=== PATIENT | male | born 1965 | race Caucasian/White ===

== ENCOUNTER 2019-10-29 09:05 | Observation (INO) ==
[2019-10-29 09:30] VITALS: BMI 24.3
--- NOTE | 2019-10-29 09:38 | DR.GENAD ---
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 Pt reports gradual onset numbness/ tingling in the area of the right face/ rue/ rle along with some mild rue weakness. Developed this around midnight last night, went to bed. Awoke w/ persistent sx's and reported to ED. Denies visual/ speech changes, syncope, other focal numbness, aphasia/ dysarthria. No CP, SOB, n/v. No hx of head injury. Complaint/Symptoms Chief Complaint:: NUMBNESS TO RIGHT SIDE Self Treatment fo Chief Complaint: PATIENT STATES THAT HE FELL ASLEEP IN THE CHAIR LAST NIGHT AND AROUND MIDNIGHT WOKE UP. HIS RIGHT ARM AND LEG WERE NUMB AND TINGLING AND STATES IF FELT LIKE WHEN YOUR EXTS "FALL ASLEEP". PATIENT TOOK A BENADRYL AND WENT TO BED. WOKE UP THIS MORNING AND THE SYMPTOM REMAINED AND SEEMED TO BE WORSE. STATES THAT IT IS NOW IN THE RIGHT SIDE OF HIS HEAD. STATES THAT HE CAN FEEL WHEN HIS EXTS AND HEAD ARE TOUCHED BUT IT IS TINGLING AND NUMB. Source History Provided: Patient Mode of Arrival Mode of Arrival: Ambulatory Timing Onset of Chief Complaint: 10/28/19 Came on: Suddenly Severity Severity: Mild PMH PMH Past Medical History: Yes Past Medical History Comment: TESTICULAR CANCER 2007 Past Surgical History: Yes Surgical History: Appendectomy and Ortho Surgery Past Surgical History Comment: LEFT SHOULDER SURGERY Family History History of Family Medical Conditions: Yes Family Medical History: Coronary Artery Disease Social History Does patient currently use any type of tobacco product: Yes Have you used tobacco products in the last 12 months: Yes Type of Tobacco Use: Cigarettes Alcohol Use: None Do you use any recreational Drugs:: Yes (MARIJUANA) Lives With: Alone Lives Where: Home Infectious screening In the last 2 months have you had wt loss of >10#?: NO Have you had fever, night sweats or hemotysis?: No Have you traveled outside the country in the last 6 months?: No Isolation: Standard ROS Review of Systems Constitutional: No Symptoms Reported Eyes: No Symptoms Reported ENTM: No Symptoms Reported Respiratoy: No Symptoms Reported Cardiovascular: No Symptoms Reported Gastrointestinal/Abdominal: No Symptoms Reported Genitourinary: No Symptoms Reported Neurological: Numbness, Paresthesia, Tingling and Weakness; negative Headache, Pre-existing Deficit, Seizure, Dizziness and Speech Problem Musculoskeletal: No Symptoms Reported Integumentary: No Symptoms Reported Hematologic/Lymphatic: No Symptoms Reported Endocrine: No Symptoms Reported Psychiatric: No Symptoms Reported All Other Systems: Reviewed and Negative PE Vital Signs Vitals: Temperature 97.9 F Pulse Rate [Left Brachial] 49 Pulse Rate 49 Respiratory Rate 20 Blood Pressure [Left Arm] 178/84 Blood Pressure 178/84 O2 Sat by Pulse Oximetry 98 General Limitations: No Limitations General Appearance: Alert and In No Apparent Distress Head Head Exam: Normal Inspection Eyes Eye exam: Normal Appearance ENT ENT Exam: Normal Exam External Ear Exam: Normal External Inspection TM/Canal Exam: Bilateral: Normal Nose Exam: Normal Nose Exam Mouth Exam: Normal Inspection Throat Exam: Normal Inspection Neck Neck Exam: Normal Inspection Chest Chest Inspection: Normal Inspection Respiratory Respiratory Exam: Normal Lung Sounds Bilat Respiratory Exam: Bilateral: Clear to Auscultation Cardiovascular Cardiovascular Exam: Regular Rate and Normal Rhythm Abdominal Exam Abdominal Exam: Normal Inspection, Normal Bowel Sounds and Soft Extremities Extremities Exam: Normal Inspection Back Back Exam: Normal Inspection Neurologic Neurological Exam: Alert, Oriented X3, CN II-XII Intact, Reflexes Normal and Other (5/5 strength all major muscle groups, no aphasia or dysarthria, a/o x 3. No pronator drift. No cerebellar defecits. ); negative Motor Sensory Deficit Psychiatric Psychiatric Exam: Normal Affect and Normal Mood Skin Skin Exam: Warm, Dry, Intact and Normal Color MDM Differential Diagnosis Differential Diagnosis: cva, ich, cervical radiculopathy, head injury, et al COURSE Treatment Treatment: 53 yo m w/ pmh htn and tobacco abuse presents with right sided body numbness and trace RUE weakness. 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 NIH SS on arrival 1. CT head negative. EKG w/ NS t wave changes. Neuro exam unchanged on serial re-eval. Loaded with asa/ statin. D/w Dr Bhatti hospitalist whom agrees to admit to observation for TIA. ROR Labs Reviewed Result Diagrams: 10/29/19 09:57 10/29/19 09:57 Laboratory: WBC 8.8 X10^3/uL (3.6-10.0) 10/29/19 09:57 RBC 4.13 X10^6/uL (4.7-6.0) L 10/29/19 09:57 Hgb 13.5 g/dL (13.5-18.0) 10/29/19 09:57 Hct 39.5 % (42.0-54.0) L 10/29/19 09:57 MCV 95.6 fL (80.0-100.0) 10/29/19 09:57 MCH 32.6 pg (27.0-34.0) 10/29/19 09:57 MCHC 34.1 g/dL (33.0-35.0) 10/29/19 09:57 RDW 12.9 % (11.6-16.5) 10/29/19 09:57 Plt Count 260 X10^3/uL (150.0-450.0) 10/29/19 09:57 MPV 8.3 fL (7.4-11.0) 10/29/19 09:57 Neut % (Auto) 67.3 % (42.0-75.0) 10/29/19 09:57 Lymph % (Auto) 20.3 % (21.0-51.0) L 10/29/19 09:57 [place] % (Auto) 7.3 % (0.0-13.0) 10/29/19 09:57 Eos % (Auto) 4.4 % (0.9-2.9) H 10/29/19 09:57 Baso % (Auto) 0.7 % (0.2-1.0) 10/29/19 09:57 Neut # (Auto) 5.9 x10^3/uL (2.2-4.8) H 10/29/19 09:57 Lymph # (Auto) 1.8 X10^3/uL (1.3-2.9) 10/29/19 09:57 [place] # (Auto) 0.6 x10^3/uL (0.3-0.8) 10/29/19 09:57 Eos # (Auto) 0.4 x10^3/uL (0.0-0.2) H 10/29/19 09:57 Baso # (Auto) 0.1 X10^3/uL (0.0-0.1) 10/29/19 09:57 Absolute Nucleated RBC 0.1 /100WBC 10/29/19 09:57 Sodium 141 mmol/L (136-145) 10/29/19 09:57 Corrected Sodium TNP 10/29/19 09:57 Potassium 4.0 mmol/L (3.5-5.1) 10/29/19 09:57 Chloride 106 mmol/L (98-107) 10/29/19 09:57 Carbon Dioxide 30.0 mmol/L (21-32) 10/29/19 09:57 BUN 14 mg/dL (7-18) 10/29/19 09:57 Creatinine 1.28 mg/dL (0.70-1.30) 10/29/19 09:57 Est GFR (MDRD) Af Amer > 60 (>60) 10/29/19 09:57 Est GFR (MDRD) Non-Af > 60 (>60) 10/29/19 09:57 Glucose 90 mg/dL (65-99) 10/29/19 09:57 Calcium 8.5 mg/dL (8.5-10.1) 10/29/19 09:57 Troponin I < 0.02 ng/mL (0-1.5) 10/29/19 09:57 EKG Rate: 44 Rhythm: SB Hypertrophy: LVH ST: Nonsp Opioid Opioid Risk Tool Total: 0 Total Score Risk Category: Low Risk Copyright: Rahul MARSHALL predicting aberrant behaviors Diagnosis Discharge Problem: Brain TIA, Benign essential HTN, Tobacco abuse
[2019-10-29 10:04] LABS: BASOPHILS # (AUTO) 0.1 X10^3/uL (0.0-0.1); BASOPHILS % (AUTO) 0.7 % (0.2-1.0); EOSINOPHILS # (AUTO) 0.4 x10^3/uL (0.0-0.2); EOSINOPHILS % (AUTO) 4.4 % (0.9-2.9); HEMATOCRIT 39.5 % (42.0-54.0); HEMOGLOBIN 13.5 g/dL (13.5-18.0); LYMPHOCYTES # (AUTO) 1.8 X10^3/uL (1.3-2.9); LYMPHOCYTES % (AUTO) 20.3 % (21.0-51.0); MEAN CORPUSCULAR HEMOGLOBIN 32.6 pg (27.0-34.0); MEAN CORPUSCULAR HGB CONC 34.1 g/dL (33.0-35.0); MEAN CORPUSCULAR VOLUME 95.6 fL (80.0-100.0); MEAN PLATELET VOLUME 8.3 fL (7.4-11.0); MONOCYTES # (AUTO) 0.6 x10^3/uL (0.3-0.8); MONOCYTES % (AUTO) 7.3 % (0.0-13.0); NEUTROPHILS # (AUTO) 5.9 x10^3/uL (2.2-4.8); NEUTROPHILS % (AUTO) 67.3 % (42.0-75.0); PLATELET COUNT 260 X10^3/uL (150.0-450.0); RED BLOOD COUNT 4.13 X10^6/uL (4.7-6.0); RED CELL DISTRIBUTION WIDTH 12.9 % (11.6-16.5); WHITE BLOOD COUNT 8.8 X10^3/uL (3.6-10.0)
[2019-10-29 10:17] LABS: BLOOD UREA NITROGEN 14 mg/dL (7-18); CALCIUM 8.5 mg/dL (8.5-10.1); CHLORIDE 106 mmol/L (98-107); CREATININE 1.28 mg/dL (0.70-1.30); SODIUM 141 mmol/L (136-145); TROPONIN I < 0.02 ng/mL (0-1.5); eGFR NON BLACK RACES > 60 (>60)
--- NOTE | 2019-10-29 10:26 | CT ---
HISTORYr/o stroke, right sided weaknessSTUDYBRAIN W/O CONCOMPARISONNoneTECHNIQUEMultiple axial CT images of the head without contrast. Dose reduction techniques including Automated Exposure Control (AEC) and adjustment of mA and kV were utilized.FINDINGSNo visible intracranial hemorrhage or overt acute infarct. No ventriculomegaly or midline shift. Basal cisterns appear patent. Globes intact. Included paranasal sinuses and mastoid air cells appear aerated. Skull base and calvarium appear intact.IMPRESSIONNo acute intracranial finding.Electronically signed by: Nabeel Orozco (Oct 29, 2019 10:25:06)
[2019-10-29] MEDS ORDERED: ASPIRIN PO ONE (10:28)
[2019-10-29] MEDS ORDERED: ASPIRIN ONE (10:32)
--- NOTE | 2019-10-29 10:50 | RAD ---
HISTORYWeaknessSTUDYCHEST, 1 VIEWCOMPARISONNoneFINDINGSThe trachea is midline. The cardiac silhouette is unremarkable . The lungs are clear without focal infiltrate or effusion. The bony thorax is unremarkable.IMPRESSIONNo acute cardiopulmonary disease.Electronically signed by: Nabeel Orozco (Oct 29, 2019 10:49:23)
[2019-10-29] MEDS ORDERED: NS 1000 ML 1,000 ML ONE (11:23)
[2019-10-29] MEDS ORDERED: NORCURON INJ 10 MG VIAL 50 MG in NS 50 ML IV 50 ML IV PRN (11:28)
[2019-10-29] MEDS: NS 1000 ML 1,000 ML IV SCH ×3 (11:37→21:30)
--- NOTE | 2019-10-29 13:03 | DR.H&P ---
H&P History & Physical for Day of: H&P Date: 10/29/19 Chief Complaint Chief Complaint: Right sided weakness Allergies Allergies Allergy/AdvReac Type Severity Reaction Status Date / Time erythromycin base Allergy Verified 10/29/19 10:29 History of Present Illness History of Present Illness: Pt is a 53 yo m with no pmhx presenting after having numbness and tingling right side of face, right arm, and RLE that started 9 hours before arriving to ED. He reports that he woke up from sleep with symptoms. Labs/imaging: Wbc 8.8, Hgb 13.5, Plt 260, Na 141, K 4, Cr 1.28, Gluc 90. Ct brain and CXR no acute findings. EKG Sinus bradycardia. Pt was given ASA 325mg in the ED. He is still having symptoms. Start on IVF, Lipitor. Neuro checks. Pt had elevated blood pressure and is currently not on any medication. Will add antihypertensive. Continue to monitor and follow up labs/imaging in the morning. Past Surgical History Surgical History: Appendectomy and Ortho Surgery Family History Family Medical History: Coronary Artery Disease Social History Does patient currently use any type of tobacco product: Yes Have you used tobacco products in the last 12 months: Yes Type of Tobacco Use: Cigarettes Alcohol Use: None Medications Home Medications: erythromycin base Allergy (Verified 10/29/19 10:29) CONTINUE taking the following medications NK 10/29/19 [History] Labs Result Diagrams: 10/30/19 06:05 10/30/19 06:05 Labs: Laboratory WBC 8.8 X10^3/uL (3.6-10.0) 10/29/19 09:57 RBC 4.13 X10^6/uL (4.7-6.0) L 10/29/19 09:57 Hgb 13.5 g/dL (13.5-18.0) 10/29/19 09:57 Hct 39.5 % (42.0-54.0) L 10/29/19 09:57 MCV 95.6 fL (80.0-100.0) 10/29/19 09:57 MCH 32.6 pg (27.0-34.0) 10/29/19 09:57 MCHC 34.1 g/dL (33.0-35.0) 10/29/19 09:57 RDW 12.9 % (11.6-16.5) 10/29/19 09:57 Plt Count 260 X10^3/uL (150.0-450.0) 10/29/19 09:57 MPV 8.3 fL (7.4-11.0) 10/29/19 09:57 Neut % (Auto) 67.3 % (42.0-75.0) 10/29/19 09:57 Lymph % (Auto) 20.3 % (21.0-51.0) L 10/29/19 09:57 [place] % (Auto) 7.3 % (0.0-13.0) 10/29/19 09:57 Eos % (Auto) 4.4 % (0.9-2.9) H 10/29/19 09:57 Baso % (Auto) 0.7 % (0.2-1.0) 10/29/19 09:57 Neut # (Auto) 5.9 x10^3/uL (2.2-4.8) H 10/29/19 09:57 Lymph # (Auto) 1.8 X10^3/uL (1.3-2.9) 10/29/19 09:57 [place] # (Auto) 0.6 x10^3/uL (0.3-0.8) 10/29/19 09:57 Eos # (Auto) 0.4 x10^3/uL (0.0-0.2) H 10/29/19 09:57 Baso # (Auto) 0.1 X10^3/uL (0.0-0.1) 10/29/19 09:57 Absolute Nucleated RBC 0.1 /100WBC 10/29/19 09:57 Sodium 141 mmol/L (136-145) 10/29/19 09:57 Corrected Sodium TNP 10/29/19 09:57 Potassium 4.0 mmol/L (3.5-5.1) 10/29/19 09:57 Chloride 106 mmol/L (98-107) 10/29/19 09:57 Carbon Dioxide 30.0 mmol/L (21-32) 10/29/19 09:57 BUN 14 mg/dL (7-18) 10/29/19 09:57 Creatinine 1.28 mg/dL (0.70-1.30) 10/29/19 09:57 Est GFR (MDRD) Af Amer > 60 (>60) 10/29/19 09:57 Est GFR (MDRD) Non-Af > 60 (>60) 10/29/19 09:57 Glucose 90 mg/dL (65-99) 10/29/19 09:57 Calcium 8.5 mg/dL (8.5-10.1) 10/29/19 09:57 Troponin I < 0.02 ng/mL (0-1.5) 10/29/19 09:57 Review of Systems Constitutional: Weakness Eyes: No Symptoms Reported ENT: No Symptoms Reported Respiratory: No Symptoms Reported Cardiovascular: No Symptoms Reported Gastrointestinal: No Symptoms Reported Genitourinary: No Symptoms Reported Musculoskeletal: No Symptoms Reported Skin: No Symptoms Reported Neurological: Weakness and Numbness Physical Exam Vital Signs: Temperature 97.9 F Pulse Rate [Left Brachial] 49 Pulse Rate 49 Respiratory Rate 20 Blood Pressure [Left Arm] 178/84 Blood Pressure 178/84 O2 Sat by Pulse Oximetry 98 Oriented: Normal Eyes: Normal Ear: Normal Nose: Normal Throat: Normal Respiratory: Clear Throughout Cardiovascular: Normal : Normal Auscultation: Bowel Sounds: Normal Palpation: Normal Tenderness: Normal Skin: Normal Musculoskeletal: Normal Psychiatric: Normal Mood Description: Calm and Appropriate Affect: Normal Speech Pattern: Clear and Appropriate Assessment/Plan (1) Brain TIA: Status: Acute Plan: CT brain negative continue neuro checks (2) Benign essential HTN: Status: Acute Plan: start hctz (3) Tobacco abuse: Status: Acute Plan: nicotine patch Review H&P Reviewed: Yes Patient was examined?: Yes
[2019-10-29] MEDS: LIPITOR TAB 40 MG PO SCH (15:41)
[2019-10-29] MEDS: NICOTINE PATCH TD SCH (15:42)
[2019-10-29] MEDS ORDERED: HYDROCHLOROTHIAZIDE 12.5 MG CAP ONE (17:52)
[2019-10-29] MEDS: HYDROCHLOROTHIAZIDE 12.5 MG CAP PO SCH (17:55)
[2019-10-29] MEDS ORDERED: APRESOLINE INJ 20 MG VIAL IVP ONE (21:16)
[2019-10-29] MEDS ORDERED: APRESOLINE INJ 20 MG VIAL ONE (21:20)
[2019-10-30] MEDS: NS 1000 ML 1,000 ML IV SCH (05:11)
[2019-10-30 06:40] LABS: BASOPHILS # (AUTO) 0.1 X10^3/uL (0.0-0.1); EOSINOPHILS # (AUTO) 0.5 x10^3/uL (0.0-0.2); EOSINOPHILS % (AUTO) 5.8 % (0.9-2.9); HEMATOCRIT 39.6 % (42.0-54.0); HEMOGLOBIN 13.8 g/dL (13.5-18.0); LYMPHOCYTES # (AUTO) 2.4 X10^3/uL (1.3-2.9); LYMPHOCYTES % (AUTO) 27.3 % (21.0-51.0); MEAN CORPUSCULAR HEMOGLOBIN 32.9 pg (27.0-34.0); MEAN CORPUSCULAR HGB CONC 34.8 g/dL (33.0-35.0); MEAN CORPUSCULAR VOLUME 94.4 fL (80.0-100.0); MEAN PLATELET VOLUME 8.2 fL (7.4-11.0); MONOCYTES # (AUTO) 0.7 x10^3/uL (0.3-0.8); MONOCYTES % (AUTO) 7.9 % (0.0-13.0); NEUTROPHILS # (AUTO) 5.1 x10^3/uL (2.2-4.8); PLATELET COUNT 255 X10^3/uL (150.0-450.0); RED BLOOD COUNT 4.19 X10^6/uL (4.7-6.0); RED CELL DISTRIBUTION WIDTH 12.8 % (11.6-16.5); WHITE BLOOD COUNT 8.8 X10^3/uL (3.6-10.0)
[2019-10-30 06:47] LABS: BLOOD UREA NITROGEN 11 mg/dL (7-18); CALCIUM 8.4 mg/dL (8.5-10.1); CARBON DIOXIDE 26.2 mmol/L (21-32); CHLORIDE 108 mmol/L (98-107); CREATININE 1.08 mg/dL (0.70-1.30); SODIUM 141 mmol/L (136-145); eGFR NON BLACK RACES > 60 (>60)
[2019-10-30] MEDS: HYDROCHLOROTHIAZIDE 12.5 MG CAP PO SCH (08:28)
[2019-10-30] MEDS: NICOTINE PATCH TD SCH (08:28)
[2019-10-30] MEDS: LIPITOR TAB 40 MG PO SCH (08:29)
[2019-10-30] MEDS ORDERED: ASPIRIN PO SCH (09:00)
[2019-10-30] MEDS ORDERED: ZESTRIL TAB 20 MG PO ONE (09:00)
[2019-10-30] MEDS ORDERED: HYDROCHLOROTHIAZIDE 12.5 MG CAP PO ONE (09:00)
[2019-10-30] MEDS ORDERED: ZESTORETIC 20/25 MG PO SCH (09:00)
[2019-10-30] MEDS ORDERED: ZESTRIL TAB 20 MG ONE (09:47)
--- NOTE | 2019-10-30 10:00 | PCM.PROG ---
Progress Note Progress Note for Day of Date of Exam: 10/30/19 Subjective Subjective: Pt is a 53 yo m admitted for TIA and stroke rule out. This morning pt states he is still feeling numbness and tingling on right side of body, including face, arm, hand, and leg. His blood pressure remained elevated yesterday and this morning even after addition of hydrochlorothiazide. Labs/i maging: Wbc 8.8, Hgb 13.8, Plt 255, Na 141, K 4.1, Cr 1.08, Gluc 101. Will stop IVF. Add on lisinopril and increase hydrochlorothiazide dose. Continue Lipitor. Neuro checks. Will order MRI brain to rule out stroke due to continuing symptoms. Continue to monitor and follow up labs/imaging in the morning. Past Medical Family Social History Past Med/Fam/Surg Hx: No changes since H&P Allergies: Allergies erythromycin base Allergy (Verified 10/29/19 10:29) Review of Systems ROS: No change since H&P Vital Signs and I&O's Vital Signs: Temperature 98 F Pulse Rate [Left Brachial] 56 Pulse Rate 49 Respiratory Rate 20 Blood Pressure [Left Arm] 175/80 Blood Pressure 178/84 O2 Sat by Pulse Oximetry 98 Intake and Output: Intake & Output 10/27/19 10/28/19 10/29/19 10/30/19 23:59 23:59 23:59 23:59 Intake Total 2140 / 2140 1115 / 1115 Output Total 900 / 900 850 / 850 Balance 1240 / 1240 265 / 265 Physical Exam Oriented: Normal Eyes: Normal Ear: Normal Nose: Normal Throat: Normal Respiratory: Normal Cardiovascular: Normal : Normal Auscultation: Bowel Sounds: Normal Tenderness: Normal Skin: Normal Musculoskeletal: Normal Psychiatric: Normal Mood Description: Calm Affect: Normal Speech Pattern: Clear and Appropriate Laboratory and Diagnostics Result Diagrams: 10/30/19 06:05 10/30/19 06:05 Labs: Laboratory WBC 8.8 X10^3/uL (3.6-10.0) 10/30/19 06:05 RBC 4.19 X10^6/uL (4.7-6.0) L 10/30/19 06:05 Hgb 13.8 g/dL (13.5-18.0) 10/30/19 06:05 Hct 39.6 % (42.0-54.0) L 10/30/19 06:05 MCV 94.4 fL (80.0-100.0) 10/30/19 06:05 MCH 32.9 pg (27.0-34.0) 10/30/19 06:05 MCHC 34.8 g/dL (33.0-35.0) 10/30/19 06:05 RDW 12.8 % (11.6-16.5) 10/30/19 06:05 Plt Count 255 X10^3/uL (150.0-450.0) 10/30/19 06:05 MPV 8.2 fL (7.4-11.0) 10/30/19 06:05 Neut % (Auto) 58.0 % (42.0-75.0) 10/30/19 06:05 Lymph % (Auto) 27.3 % (21.0-51.0) 10/30/19 06:05 [place] % (Auto) 7.9 % (0.0-13.0) 10/30/19 06:05 Eos % (Auto) 5.8 % (0.9-2.9) H 10/30/19 06:05 Baso % (Auto) 1.0 % (0.2-1.0) 10/30/19 06:05 Neut # (Auto) 5.1 x10^3/uL (2.2-4.8) H 10/30/19 06:05 Lymph # (Auto) 2.4 X10^3/uL (1.3-2.9) 10/30/19 06:05 [place] # (Auto) 0.7 x10^3/uL (0.3-0.8) 10/30/19 06:05 Eos # (Auto) 0.5 x10^3/uL (0.0-0.2) H 10/30/19 06:05 Baso # (Auto) 0.1 X10^3/uL (0.0-0.1) 10/30/19 06:05 Absolute Nucleated RBC 0.1 /100WBC 10/30/19 06:05 Sodium 141 mmol/L (136-145) 10/30/19 06:05 Corrected Sodium TNP 10/30/19 06:05 Potassium 4.1 mmol/L (3.5-5.1) 10/30/19 06:05 Chloride 108 mmol/L (98-107) H 10/30/19 06:05 Carbon Dioxide 26.2 mmol/L (21-32) 10/30/19 06:05 BUN 11 mg/dL (7-18) 10/30/19 06:05 Creatinine 1.08 mg/dL (0.70-1.30) 10/30/19 06:05 Est GFR (MDRD) Af Amer > 60 (>60) 10/30/19 06:05 Est GFR (MDRD) Non-Af > 60 (>60) 10/30/19 06:05 Glucose 101 mg/dL (65-99) H 10/30/19 06:05 Calcium 8.4 mg/dL (8.5-10.1) L 10/30/19 06:05 Troponin I < 0.02 ng/mL (0-1.5) 10/29/19 09:57 Plan (1) Brain TIA: Status: Acute Plan: CT brain negative continue neuro checks Order MRI brain (2) Benign essential HTN: Status: Acute Plan: Will start on Lisinopril/HCTZ 20/25mg (3) Tobacco abuse: Status: Acute Plan: nicotine patch
[2019-10-30] MEDS ORDERED: CATAPRES TAB 0.1 MG ONE (11:57)
[2019-10-30] MEDS: CATAPRES TAB 0.1 MG PO PRN ×2 (12:00→18:03)
[2019-10-31] MEDS ORDERED: ASPIRIN EC 81 MG PO ONE (08:27)
[2019-10-31] MEDS: ASPIRIN PO SCH (08:31)
[2019-10-31] MEDS: CATAPRES TAB 0.1 MG PO SCH ×2 (08:32→21:47)
[2019-10-31] MEDS: LIPITOR TAB 40 MG PO SCH (08:32)
[2019-10-31] MEDS: NORVASC TAB 10 MG PO SCH (08:33)
[2019-10-31] MEDS: NICOTINE PATCH TD SCH (08:33)
[2019-10-31] MEDS: ZESTORETIC 20/25 MG PO SCH (08:33)
[2019-10-31] MEDS ORDERED: APRESOLINE TAB 25 MG ONE (12:32)
[2019-10-31] MEDS: APRESOLINE TAB 25 MG PO SCH ×4 (12:34→21:48)
--- NOTE | 2019-10-31 13:17 | PCM.PROG ---
Progress Note Progress Note for Day of Date of Exam: 10/31/19 Subjective Subjective: Pt is a 53 yo m admitted for TIA and stroke rule out. This morning pt reports that numbness and tingling on right side of body has improved but still present in some areas. Labs/imaging: Wbc 8.8, Hgb 13.8, Plt 255, Na 141, K 4.1, Cr 1.08, Gluc 101. His blood pressure has remained elevated and difficult to control. Will add hydralazine and norvasc. Continue Clonidine, lisinopril/hydrochlorothiazide, Lipitor. Neuro checks. MRI brain and Echo ordered. Continue to monitor and follow up labs/imaging in the morning. Past Medical Family Social History Past Med/Fam/Surg Hx: No changes since H&P Allergies: Allergies erythromycin base Allergy (Verified 10/29/19 10:29) Review of Systems ROS: No change since H&P Vital Signs and I&O's Vital Signs: Temperature 97.8 F Pulse Rate [Right Brachial] 64 Pulse Rate [Left Brachial] 50 Pulse Rate 49 Respiratory Rate 20 Blood Pressure [Right Arm] 223/90 Blood Pressure [Left Arm] 227/109 Blood Pressure 178/84 O2 Sat by Pulse Oximetry 98 Intake and Output: Intake & Output 10/28/19 10/29/19 10/30/19 10/31/19 23:59 23:59 23:59 23:59 Intake Total 2140 / 2140 3899 / 3899 240 / 240 Output Total 900 / 900 850 / 850 Balance 1240 / 1240 3049 / 3049 240 / 240 Physical Exam Oriented: Normal Eyes: Normal Ear: Normal Nose: Normal Throat: Normal Respiratory: Normal Cardiovascular: Normal : Normal Auscultation: Bowel Sounds: Normal Tenderness: Normal Skin: Normal Musculoskeletal: Normal Psychiatric: Normal Mood Description: Calm Affect: Normal Speech Pattern: Clear and Appropriate Laboratory and Diagnostics Result Diagrams: 10/30/19 06:05 10/30/19 06:05 Labs: Laboratory WBC 8.8 X10^3/uL (3.6-10.0) 10/30/19 06:05 RBC 4.19 X10^6/uL (4.7-6.0) L 10/30/19 06:05 Hgb 13.8 g/dL (13.5-18.0) 10/30/19 06:05 Hct 39.6 % (42.0-54.0) L 10/30/19 06:05 MCV 94.4 fL (80.0-100.0) 10/30/19 06:05 MCH 32.9 pg (27.0-34.0) 10/30/19 06:05 MCHC 34.8 g/dL (33.0-35.0) 10/30/19 06:05 RDW 12.8 % (11.6-16.5) 10/30/19 06:05 Plt Count 255 X10^3/uL (150.0-450.0) 10/30/19 06:05 MPV 8.2 fL (7.4-11.0) 10/30/19 06:05 Neut % (Auto) 58.0 % (42.0-75.0) 10/30/19 06:05 Lymph % (Auto) 27.3 % (21.0-51.0) 10/30/19 06:05 [place] % (Auto) 7.9 % (0.0-13.0) 10/30/19 06:05 Eos % (Auto) 5.8 % (0.9-2.9) H 10/30/19 06:05 Baso % (Auto) 1.0 % (0.2-1.0) 10/30/19 06:05 Neut # (Auto) 5.1 x10^3/uL (2.2-4.8) H 10/30/19 06:05 Lymph # (Auto) 2.4 X10^3/uL (1.3-2.9) 10/30/19 06:05 [place] # (Auto) 0.7 x10^3/uL (0.3-0.8) 10/30/19 06:05 Eos # (Auto) 0.5 x10^3/uL (0.0-0.2) H 10/30/19 06:05 Baso # (Auto) 0.1 X10^3/uL (0.0-0.1) 10/30/19 06:05 Absolute Nucleated RBC 0.1 /100WBC 10/30/19 06:05 Sodium 141 mmol/L (136-145) 10/30/19 06:05 Corrected Sodium TNP 10/30/19 06:05 Potassium 4.1 mmol/L (3.5-5.1) 10/30/19 06:05 Chloride 108 mmol/L (98-107) H 10/30/19 06:05 Carbon Dioxide 26.2 mmol/L (21-32) 10/30/19 06:05 BUN 11 mg/dL (7-18) 10/30/19 06:05 Creatinine 1.08 mg/dL (0.70-1.30) 10/30/19 06:05 Est GFR (MDRD) Af Amer > 60 (>60) 10/30/19 06:05 Est GFR (MDRD) Non-Af > 60 (>60) 10/30/19 06:05 Glucose 101 mg/dL (65-99) H 10/30/19 06:05 Calcium 8.4 mg/dL (8.5-10.1) L 10/30/19 06:05 Troponin I < 0.02 ng/mL (0-1.5) 10/29/19 09:57 Plan (1) Brain TIA: Status: Acute Plan: CT brain negative continue neuro checks Order MRI brain and echo. (2) Benign essential HTN: Status: Acute Plan: Will start on Lisinopril/HCTZ 20/25mg (3) Tobacco abuse: Status: Acute Plan: nicotine patch
--- NOTE | 2019-10-31 16:31 | MRI ---
HISTORYWEAKNESS, NUMBNESSSTUDYBRAIN W/O CONCOMPARISONPrevious head CT from 10/29/2019TECHNIQUEMultiplanar multi-sequence MRI of the brain was obtained without utilizing intravenous contrastFINDINGSPosterior fossa and supratentorial region are unremarkable with no intracranial hemorrhage or extracerebral fluid collections. Ventricles are symmetric in size and position with no mass effect seen. Normal cullen-white matter differentiation is maintained. There is no evidence of acute or chronic ischemia. Normal signal is seen in the calvarial structures. Mucosal thickening is noted at the floor of the left maxillary sinus. Mild degree of mucosal thickening is also seen in the right frontal sinus. Visualized aspect of the other paranasal sinuses and mastoid air cells are clear.IMPRESSIONNo acute intracranial abnormality is seen on this examElectronically signed by: SEA ALEMAN (Oct 31, 2019 16:30:01)
[2019-11-01 05:15] LABS: BASOPHILS # (AUTO) 0.2 X10^3/uL (0.0-0.1); BASOPHILS % (AUTO) 1.8 % (0.2-1.0); EOSINOPHILS # (AUTO) 0.5 x10^3/uL (0.0-0.2); EOSINOPHILS % (AUTO) 4.6 % (0.9-2.9); HEMATOCRIT 43.1 % (42.0-54.0); HEMOGLOBIN 14.8 g/dL (13.5-18.0); LYMPHOCYTES # (AUTO) 2.5 X10^3/uL (1.3-2.9); LYMPHOCYTES % (AUTO) 25.4 % (21.0-51.0); MEAN CORPUSCULAR HEMOGLOBIN 32.6 pg (27.0-34.0); MEAN CORPUSCULAR HGB CONC 34.4 g/dL (33.0-35.0); MEAN CORPUSCULAR VOLUME 94.6 fL (80.0-100.0); MEAN PLATELET VOLUME 8.6 fL (7.4-11.0); MONOCYTES # (AUTO) 0.8 x10^3/uL (0.3-0.8); NEUTROPHILS % (AUTO) 60.2 % (42.0-75.0); PLATELET COUNT 280 X10^3/uL (150.0-450.0); RED BLOOD COUNT 4.55 X10^6/uL (4.7-6.0); RED CELL DISTRIBUTION WIDTH 12.7 % (11.6-16.5)
[2019-11-01 05:34] LABS: ALANINE AMINOTRANSFERASE 19 Units/L (12-78); ALBUMIN 3.2 g/dL (3.4-5.0); ALKALINE PHOSPHATASE 82 Units/L (46-116); ASPARTATE AMINO TRANSFERASE 16 Units/L (15-37); BLOOD UREA NITROGEN 19 mg/dL (7-18); CALCIUM 8.6 mg/dL (8.5-10.1); CARBON DIOXIDE 28.9 mmol/L (21-32); CHLORIDE 101 mmol/L (98-107); COR CA(FOR HYPOALB) 9.2 mg/dL (8.5-10.1); CREATININE 1.62 mg/dL (0.70-1.30); SODIUM 139 mmol/L (136-145); TOTAL PROTEIN 7.2 g/dL (6.4-8.2); eGFR NON BLACK RACES 48 (>60)
[2019-11-01] MEDS: APRESOLINE TAB 25 MG PO SCH ×3 (06:00→21:24)
[2019-11-01] MEDS ORDERED: MAGNESIUM SULFATE 1 GRAM/100 mL PREMIX 1 GM/100 ML BAG IV PRN (07:59)
[2019-11-01] MEDS ORDERED: POTASSIUM CHL 60 MEQ/NS 0.45% 500 ML IV PRN (07:59)
[2019-11-01] MEDS ORDERED: K-RIDER 10 MEQ/NS 100 ML 10 MEQ/100 ML BAG IV PRN (07:59)
[2019-11-01] MEDS ORDERED: KLOR-CON PO PRN (07:59)
[2019-11-01] MEDS ORDERED: MICRO K EXTEN CAP 10 MEQ PO PRN (07:59)
[2019-11-01] MEDS ORDERED: POTASSIUM CHLORIDE LIQ 20 MEQ UDC PO PRN (07:59)
[2019-11-01] MEDS ORDERED: POTASSIUM CHL 40 MEQ/NS 0.45% 500 ML IV PRN (07:59)
[2019-11-01] MEDS ORDERED: K-DUR TAB 20 MEQ PO PRN (07:59)
[2019-11-01] MEDS ORDERED: ASPIRIN EC 81 MG PO ONE (08:16)
[2019-11-01] MEDS: CATAPRES TAB 0.1 MG PO SCH (08:21)
[2019-11-01] MEDS: LIPITOR TAB 40 MG PO SCH (08:22)
[2019-11-01] MEDS: ASPIRIN PO SCH (08:22)
[2019-11-01] MEDS: ZESTORETIC 20/25 MG PO SCH (08:23)
[2019-11-01] MEDS: NICOTINE PATCH TD SCH (08:23)
[2019-11-01] MEDS: NORVASC TAB 10 MG PO SCH (08:23)
[2019-11-01] MEDS: CATAPRES TAB 0.2 MG PO SCH ×2 (14:31→21:24)
[2019-11-01] MEDS: NS 1000 ML 1,000 ML IV SCH ×3 (14:31→23:00)
[2019-11-02] MEDS: NS 1000 ML 1,000 ML IV SCH ×2 (04:25→09:01)
[2019-11-02 06:09] LABS: BASOPHILS # (AUTO) 0.1 X10^3/uL (0.0-0.1); EOSINOPHILS # (AUTO) 0.5 x10^3/uL (0.0-0.2); EOSINOPHILS % (AUTO) 6.2 % (0.9-2.9); HEMATOCRIT 39.5 % (42.0-54.0); HEMOGLOBIN 13.7 g/dL (13.5-18.0); LYMPHOCYTES # (AUTO) 2.4 X10^3/uL (1.3-2.9); LYMPHOCYTES % (AUTO) 28.7 % (21.0-51.0); MEAN CORPUSCULAR HEMOGLOBIN 32.5 pg (27.0-34.0); MEAN CORPUSCULAR HGB CONC 34.6 g/dL (33.0-35.0); MEAN CORPUSCULAR VOLUME 94.1 fL (80.0-100.0); MEAN PLATELET VOLUME 8.6 fL (7.4-11.0); MONOCYTES # (AUTO) 0.9 x10^3/uL (0.3-0.8); MONOCYTES % (AUTO) 10.6 % (0.0-13.0); NEUTROPHILS # (AUTO) 4.5 x10^3/uL (2.2-4.8); NEUTROPHILS % (AUTO) 53.5 % (42.0-75.0); PLATELET COUNT 245 X10^3/uL (150.0-450.0); RED CELL DISTRIBUTION WIDTH 12.8 % (11.6-16.5); WHITE BLOOD COUNT 8.4 X10^3/uL (3.6-10.0)
[2019-11-02 06:19] LABS: ALANINE AMINOTRANSFERASE 20 Units/L (12-78); ALBUMIN 2.8 g/dL (3.4-5.0); ALKALINE PHOSPHATASE 70 Units/L (46-116); ASPARTATE AMINO TRANSFERASE 15 Units/L (15-37); BLOOD UREA NITROGEN 20 mg/dL (7-18); CALCIUM 8.3 mg/dL (8.5-10.1); CARBON DIOXIDE 26.2 mmol/L (21-32); CHLORIDE 106 mmol/L (98-107); COR CA(FOR HYPOALB) 9.3 mg/dL (8.5-10.1); CREATININE 1.46 mg/dL (0.70-1.30); SODIUM 139 mmol/L (136-145); TOTAL PROTEIN 6.2 g/dL (6.4-8.2); eGFR NON BLACK RACES 54 (>60)
[2019-11-02] MEDS: ASPIRIN PO SCH (08:59)
[2019-11-02] MEDS: NORVASC TAB 10 MG PO SCH (09:00)
[2019-11-02] MEDS: NICOTINE PATCH TD SCH (09:00)
[2019-11-02] MEDS: LIPITOR TAB 40 MG PO SCH (09:00)
[2019-11-02] MEDS: ZESTORETIC 20/25 MG PO SCH (09:00)
[2019-11-02] MEDS: APRESOLINE TAB 25 MG PO SCH (09:04)
[2019-11-02] MEDS: CATAPRES TAB 0.2 MG PO SCH (09:05)
--- NOTE | 2019-11-02 10:34 | CT ---
HISTORYHTNSTUDYCT of the abdomen and pelvis with and without contrast.COMPARISONNoneTECHNIQUEMultiple axial images of the abdomen and pelvis were obtained from the lung bases to the pubic symphysis after the administration of IV contrast. Delayed sequences were performed. Dose reduction techniques including Automated Exposure Control (AEC) and adjustment of mA and kV were utilized. 3D MIPS images were generated from the original data set.FINDINGSThe visualized portions of the lung bases are unremarkable. There is [id number] multilevel discogenic degenerative disease of the visualized thoracic and lumbar spine. There are bilateral L5 pars defects with grade 1 anterior listhesis of L5 on S1. Subcutaneous tissues are unremarkable. The abdominal aorta demonstrates good opacification with scattered atherosclerotic disease but no aneurysmal dilatation. There are single bilateral renal arteries without atherosclerotic disease. The celiac, SMA and SUSAN are widely patent without atherosclerotic disease at their origins. Both kidneys demonstrate normal renal enhancement. Delayed imaging shows urinary chronic trapped within the right kidney. The left kidney shows no renal pelvic or ureter contrast. There is no hydronephrosis or perinephric stranding. No renal stones are present.For arterial study the liver, spleen, adrenal glands, pancreas and stomach are unremarkable. No retroperitoneal adenopathy is seen. Gallbladder shows no gallstones or signs of inflammation.There are innumerable sigmoid diverticula without evidence of perforation or adjacent mesenteric fat stranding. The urinary bladder is distended but otherwise unremarkable. The prostate measures 3.4 centimeters. There is no prepatellar fluid or pelvic adenopathy. The small bowel should is unremarkable.Conclusion:1. normal bilateral renal enhancement without evidence of hydronephrosis, stone or mass. No evidence of bilateral single renal artery narrowing or atherosclerotic disease. Delayed imaging showed no urinary contrast within the left kidney; however this may be due to image timing.Electronically signed by: CHRISTINE HENRY (Nov 02, 2019 10:33:53)
--- NOTE | 2019-11-02 11:59 | W.DIS.FURT ---
Summary of Discharge Discharge Summary of Date Date of Exam: 11/02/19 Admission Date Date of Admission: 10/29/19 Admission Diagnosis Hospital Course: Pt is a 53 yo m admitted for TIA and stroke rule out. During hospital course his blood pressure was difficult to control. Cardiology was consulted that recommended adjustments of his medications that now includes: hydralazine, norvasc, clonidine, lisinopril/hydrochlorothiazide, lipitor. It is likely that his TIA symptoms were due to malignant hypertension. MRI brain negative for acute findings, and Echo pEF. CTA renal negative renal artery stenosis. Labs/imaging: Wbc 8.4, Hgb 13.7, Plt 245, Na 139, K 4.1, Cr 1.46, Gluc 101. On day of discharge pt's blood pressure was under control. He is in stable condition and was instructed to continue medications at home. Follow up with pcp and cardiology in 1-2 weeks. Vital Signs: Vital Signs (72 hours) 10/30/19 12:45 10/30/19 15:00 10/30/19 16:00 Temperature 98.1 F Pulse Rate [Left Brachial] 62 62 59 L Pulse Rate [Right Brachial] 64 Respiratory Rate 20 Blood Pressure [Left Arm] 232/111 182/92 169/88 Blood Pressure [Right Arm] 188/86 O2 Sat by Pulse Oximetry 96 10/30/19 17:34 10/30/19 17:40 10/30/19 20:00 Temperature 98.3 F Pulse Rate [Left Brachial] 56 L Pulse Rate [Right Brachial] Respiratory Rate 22 Blood Pressure [Left Arm] 201/93 208/90 187/88 Blood Pressure [Right Arm] O2 Sat by Pulse Oximetry 97 10/31/19 00:00 10/31/19 04:00 10/31/19 08:00 Temperature 97.9 F 97.9 F 97.8 F Pulse Rate [Left Brachial] 50 L 54 L 50 L Pulse Rate [Right Brachial] Respiratory Rate 18 18 20 Blood Pressure [Left Arm] 165/85 180/70 209/93 Blood Pressure [Right Arm] O2 Sat by Pulse Oximetry 96 96 98 10/31/19 11:00 10/31/19 12:00 10/31/19 14:00 Temperature 98.8 F Pulse Rate [Left Brachial] 56 L Pulse Rate [Right Brachial] Respiratory Rate 20 Blood Pressure [Left Arm] 184/94 227/109 204/99 Blood Pressure [Right Arm] 223/90 187/84 O2 Sat by Pulse Oximetry 99 10/31/19 16:00 10/31/19 20:00 11/01/19 00:00 Temperature 98.0 F 98.2 F 97.8 F Pulse Rate [Left Brachial] 62 72 60 Pulse Rate [Right Brachial] Respiratory Rate 20 20 20 Blood Pressure [Left Arm] 202/104 121/83 145/76 Blood Pressure [Right Arm] O2 Sat by Pulse Oximetry 100 98 98 11/01/19 04:00 11/01/19 08:00 11/01/19 12:00 Temperature 97.5 F L 97.8 F 98.4 F Pulse Rate [Left Brachial] 50 L 60 67 Pulse Rate [Right Brachial] Respiratory Rate 20 18 18 Blood Pressure [Left Arm] 140/73 188/90 149/79 Blood Pressure [Right Arm] O2 Sat by Pulse Oximetry 99 98 98 11/01/19 16:00 11/01/19 20:00 11/02/19 00:00 Temperature 98.7 F 98.4 F 97.9 F Pulse Rate [Left Brachial] 72 59 L 51 L Pulse Rate [Right Brachial] Respiratory Rate 20 18 18 Blood Pressure [Left Arm] 142/77 139/76 118/60 Blood Pressure [Right Arm] O2 Sat by Pulse Oximetry 97 97 95 11/02/19 04:00 11/02/19 08:00 Temperature 97.8 F 97.9 F Pulse Rate [Left Brachial] 52 L 52 L Pulse Rate [Right Brachial] Respiratory Rate 19 20 Blood Pressure [Left Arm] 125/67 150/77 Blood Pressure [Right Arm] O2 Sat by Pulse Oximetry 97 100 Labs: Laboratory Last Values WBC 8.4 X10^3/uL (3.6-10.0) 11/02/19 05:04 RBC 4.20 X10^6/uL (4.7-6.0) L 11/02/19 05:04 Hgb 13.7 g/dL (13.5-18.0) 11/02/19 05:04 Hct 39.5 % (42.0-54.0) L 11/02/19 05:04 MCV 94.1 fL (80.0-100.0) 11/02/19 05:04 MCH 32.5 pg (27.0-34.0) 11/02/19 05:04 MCHC 34.6 g/dL (33.0-35.0) 11/02/19 05:04 RDW 12.8 % (11.6-16.5) 11/02/19 05:04 Plt Count 245 X10^3/uL (150.0-450.0) 11/02/19 05:04 MPV 8.6 fL (7.4-11.0) 11/02/19 05:04 Neut % (Auto) 53.5 % (42.0-75.0) 11/02/19 05:04 Lymph % (Auto) 28.7 % (21.0-51.0) 11/02/19 05:04 [place] % (Auto) 10.6 % (0.0-13.0) 11/02/19 05:04 Eos % (Auto) 6.2 % (0.9-2.9) H 11/02/19 05:04 Baso % (Auto) 1.0 % (0.2-1.0) 11/02/19 05:04 Neut # (Auto) 4.5 x10^3/uL (2.2-4.8) 11/02/19 05:04 Lymph # (Auto) 2.4 X10^3/uL (1.3-2.9) 11/02/19 05:04 [place] # (Auto) 0.9 x10^3/uL (0.3-0.8) H 11/02/19 05:04 Eos # (Auto) 0.5 x10^3/uL (0.0-0.2) H 11/02/19 05:04 Baso # (Auto) 0.1 X10^3/uL (0.0-0.1) 11/02/19 05:04 Absolute Nucleated RBC 0.0 /100WBC 11/02/19 05:04 Sodium 139 mmol/L (136-145) 11/02/19 05:04 Corrected Sodium TNP 11/02/19 05:04 Potassium 4.1 mmol/L (3.5-5.1) 11/02/19 05:04 Chloride 106 mmol/L (98-107) 11/02/19 05:04 Carbon Dioxide 26.2 mmol/L (21-32) 11/02/19 05:04 BUN 20 mg/dL (7-18) H 11/02/19 05:04 Creatinine 1.46 mg/dL (0.70-1.30) H 11/02/19 05:04 Est GFR (MDRD) Af Amer > 60 (>60) 11/02/19 05:04 Est GFR (MDRD) Non-Af 54 (>60) L 11/02/19 05:04 Glucose 101 mg/dL (65-99) H 11/02/19 05:04 Calcium 8.3 mg/dL (8.5-10.1) L 11/02/19 05:04 Corrected Calcium 9.3 mg/dL (8.5-10.1) 11/02/19 05:04 Magnesium 1.8 mg/dL (1.7-2.9) 11/01/19 04:05 Total Bilirubin 0.40 mg/dL (0.2-1.0) 11/02/19 05:04 AST 15 Units/L (15-37) 11/02/19 05:04 ALT 20 Units/L (12-78) 11/02/19 05:04 Alkaline Phosphatase 70 Units/L (46-116) 11/02/19 05:04 Troponin I < 0.02 ng/mL (0-1.5) 10/29/19 09:57 Total Protein 6.2 g/dL (6.4-8.2) L 11/02/19 05:04 Albumin 2.8 g/dL (3.4-5.0) L 11/02/19 05:04 Globulin 3.4 g/dL (2.5-4.5) 11/02/19 05:04 Albumin/Globulin Ratio 0.8 Ratio (1.1-2.1) L 11/02/19 05:04 Reason For Visit: TIA Discharge Date Discharge Date: 11/02/19 Discharge Diagnosis All Active Problems (Updated 10/29/19 @ 11:22 by Severo Dunlap) Brain TIA (Acute) Benign essential HTN (Acute) Tobacco abuse (Acute) Plan of Treatment: Continue with present treatment and follow up plan. Pt is to keep follow up appointment as instructed and take medications as ordered. Discharge Medications Discharge Medications: erythromycin base Allergy (Verified 10/29/19 10:29) CONTINUE taking the following medications NK 10/29/19 [History] New Prescriptions amlodipine 10 mg PO DAILY 30 Days #30 tab 11/02/19 [Rx] aspirin 81 mg PO DAILY 30 Days #30 tab 11/02/19 [Rx] atorvastatin 40 mg PO DAILY 30 Days #30 tab 11/02/19 [Rx] clonidine HCl 0.2 mg PO TID 30 Days #90 tab 11/02/19 [Rx] hydralazine 50 mg PO TID 30 Days #90 tab 11/02/19 [Rx] lisinopril-hydrochlorothiazide 1 tab PO DAILY 30 Days #30 tab 11/02/19 [Rx] Discharge Disposition Discharge Disposition: Home Discharge Condition: Stable
[2019-11-02 14:05] VITALS: BP 148/78
--- NOTE | 2019-11-03 08:24 | PCM.PROG ---
Progress Note Progress Note for Day of Date of Exam: 11/01/19 Subjective Subjective: Pt is a 53 yo m admitted for TIA and stroke rule out. He reports feeling better this morning. Labs/imaging: Wbc 10, Hgb 14.8, Plt 280, Na 139, K 3.6, Cr 1.62, Gluc 109. His blood pressure still remains elevated and difficult to control. His medications include: hydralazine, norvasc, Clonidine, lisinopril/hydrochlorothiazide, Lipitor. Neuro checks. MRI brain negative for acute findings, and Echo pEF. Consulted cardiology, recommended increase Clonidine dose and frequency, ordered CTA renal for evaluate for renal artery stenosis. Follow blood pressure today. Continue to monitor and follow up labs/imaging in the morning. Past Medical Family Social History Past Med/Fam/Surg Hx: No changes since H&P Allergies: Allergies erythromycin base Allergy (Verified 10/29/19 10:29) Review of Systems ROS: No change since H&P Vital Signs and I&O's Vital Signs: Temperature 98.3 F Pulse Rate [Right Brachial] 64 Pulse Rate [Left Brachial] 62 Pulse Rate 49 Respiratory Rate 20 Blood Pressure [Right Arm] 187/84 Blood Pressure [Left Arm] 148/78 Blood Pressure 178/84 O2 Sat by Pulse Oximetry 97 Intake and Output: Intake & Output 10/31/19 11/01/19 11/02/19 11/03/19 23:59 23:59 23:59 23:59 Intake Total 1520 / 1520 4080 / 4080 1115 / 1115 Balance 1520 / 1520 4080 / 4080 1115 / 1115 Physical Exam Oriented: Normal Eyes: Normal Ear: Normal Nose: Normal Throat: Normal Respiratory: Normal Cardiovascular: Normal : Normal Auscultation: Bowel Sounds: Normal Tenderness: Normal Skin: Normal Musculoskeletal: Normal Psychiatric: Normal Mood Description: Calm Affect: Normal Speech Pattern: Clear and Appropriate Laboratory and Diagnostics Result Diagrams: 11/02/19 05:04 11/02/19 05:04 Labs: Laboratory WBC 8.4 X10^3/uL (3.6-10.0) 11/02/19 05:04 RBC 4.20 X10^6/uL (4.7-6.0) L 11/02/19 05:04 Hgb 13.7 g/dL (13.5-18.0) 11/02/19 05:04 Hct 39.5 % (42.0-54.0) L 11/02/19 05:04 MCV 94.1 fL (80.0-100.0) 11/02/19 05:04 MCH 32.5 pg (27.0-34.0) 11/02/19 05:04 MCHC 34.6 g/dL (33.0-35.0) 11/02/19 05:04 RDW 12.8 % (11.6-16.5) 11/02/19 05:04 Plt Count 245 X10^3/uL (150.0-450.0) 11/02/19 05:04 MPV 8.6 fL (7.4-11.0) 11/02/19 05:04 Neut % (Auto) 53.5 % (42.0-75.0) 11/02/19 05:04 Lymph % (Auto) 28.7 % (21.0-51.0) 11/02/19 05:04 [place] % (Auto) 10.6 % (0.0-13.0) 11/02/19 05:04 Eos % (Auto) 6.2 % (0.9-2.9) H 11/02/19 05:04 Baso % (Auto) 1.0 % (0.2-1.0) 11/02/19 05:04 Neut # (Auto) 4.5 x10^3/uL (2.2-4.8) 11/02/19 05:04 Lymph # (Auto) 2.4 X10^3/uL (1.3-2.9) 11/02/19 05:04 [place] # (Auto) 0.9 x10^3/uL (0.3-0.8) H 11/02/19 05:04 Eos # (Auto) 0.5 x10^3/uL (0.0-0.2) H 11/02/19 05:04 Baso # (Auto) 0.1 X10^3/uL (0.0-0.1) 11/02/19 05:04 Absolute Nucleated RBC 0.0 /100WBC 11/02/19 05:04 Sodium 139 mmol/L (136-145) 11/02/19 05:04 Corrected Sodium TNP 11/02/19 05:04 Potassium 4.1 mmol/L (3.5-5.1) 11/02/19 05:04 Chloride 106 mmol/L (98-107) 11/02/19 05:04 Carbon Dioxide 26.2 mmol/L (21-32) 11/02/19 05:04 BUN 20 mg/dL (7-18) H 11/02/19 05:04 Creatinine 1.46 mg/dL (0.70-1.30) H 11/02/19 05:04 Est GFR (MDRD) Af Amer > 60 (>60) 11/02/19 05:04 Est GFR (MDRD) Non-Af 54 (>60) L 11/02/19 05:04 Glucose 101 mg/dL (65-99) H 11/02/19 05:04 Calcium 8.3 mg/dL (8.5-10.1) L 11/02/19 05:04 Corrected Calcium 9.3 mg/dL (8.5-10.1) 11/02/19 05:04 Magnesium 1.8 mg/dL (1.7-2.9) 11/01/19 04:05 Total Bilirubin 0.40 mg/dL (0.2-1.0) 11/02/19 05:04 AST 15 Units/L (15-37) 11/02/19 05:04 ALT 20 Units/L (12-78) 11/02/19 05:04 Alkaline Phosphatase 70 Units/L (46-116) 11/02/19 05:04 Troponin I < 0.02 ng/mL (0-1.5) 10/29/19 09:57 Total Protein 6.2 g/dL (6.4-8.2) L 11/02/19 05:04 Albumin 2.8 g/dL (3.4-5.0) L 11/02/19 05:04 Globulin 3.4 g/dL (2.5-4.5) 11/02/19 05:04 Albumin/Globulin Ratio 0.8 Ratio (1.1-2.1) L 11/02/19 05:04 Plan (1) Brain TIA: Status: Acute Plan: CT brain negative continue neuro checks Order MRI brain and echo. (2) Benign essential HTN: Status: Acute Plan: Will start on Lisinopril/HCTZ 20/25mg (3) Tobacco abuse: Status: Acute Plan: nicotine patch
== END 2019-11-02 14:05 | disposition home or self-care (01) ==
LOC: OBS 09:15 → ER 09:15 → MED/SURG 12:44
PROVIDERS: ADMIT Internal Medicine; ATTEND Internal Medicine
DX: G45.9 Transient cerebral ischemic attack, unspecified; F15.11 Other stimulant abuse, in remission; R20.0 Anesthesia of skin; I10 Essential (primary) hypertension; Z72.0 Tobacco use; Z85.47 Personal history of malignant neoplasm of testis; F19.10 Other psychoactive substance abuse, uncomplicated